=== PATIENT | female | born 1985 | race Caucasian/White ===

== ENCOUNTER 2017-10-22 19:59 | Inpatient (IN) | payer SELFPAY ==
[~2017-10-22] VITALS: Ht 162.6 cm; Wt 57.6 kg
[2017-10-22] MEDS ORDERED: IV NORMAL SALINE 1000ML BAG 1,000 ML IV ONE ×2 (20:15→21:30)
[2017-10-22 20:17] LABS: BASO % 1 % (0-3); EOS % 1 % (0-3); HEMATOCRIT 40.8 % (36.0-47.0); HEMOGLOBIN 13.4 g/dL (12.0-15.5); LYMPH # 1.8 x10^3/uL (1.0-4.8); LYMPH % 26 % (24-48); MEAN CORPUSCULAR HEMOGLOBIN 30 pg (25-35); MEAN CORPUSCULAR HGB CONC 33 g/dL (31-37); MEAN CORPUSCULAR VOLUME 91 fL (79-100); MONO % 10 % (0-9); NEUT % 63 % (31-73); PLATELET COUNT 303 x10^3/uL (140-400); RED BLOOD COUNT 4.47 x10^6/uL (3.50-5.40); RED CELL DISTRIBUTION WIDTH 12.9 % (11.5-14.5)
--- NOTE | 2017-10-22 20:21 | EKG ---
[facility] [address] [place] [address] Test Date: 2017-10-22 Test Time: 19:59:19 Pat Name: DARRYL KELLY Department: Room: Gender: F Dicer Operator: : 1985 Requested By: PASTORA ROMERO Order Number: [id number] Reading MD: Mitchell Garcia Measurements Intervals [place] Rate: 115 P: 72 NV: 136 QRS: 71 QRSD: 76 T: 55 QT: 314 QTc: 436 Interpretive Statements SINUS TACHYCARDIA OTHERWISE NORMAL ECG Electronically Signed On 11-04-2017 13:58:53 APARTMENT COMMUNITY ASSISTANT MANAGER by Mitchell Garcia
[2017-10-22 20:23] LABS: POTASSIUM ISTAT 3.6 mmol/L (3.5-5.0)
[2017-10-22 20:27] LABS: BARBITURATES NEG (NEG); BENZODIAZEPINES POS (NEG); CANNABINOIDS POS (NEG); COCAINE POS (NEG); METHADONE NEG (NEG); OPIATES POS (NEG); PHENCYCLIDINE NEG (NEG)
[2017-10-22 20:31] LABS: CALCIUM 8.8 mg/dL (8.5-10.1); CREATININE 1.4 mg/dL (0.6-1.0); GFR 43.3; POTASSIUM 3.6 mmol/L (3.5-5.1)
[2017-10-22 20:37] LABS: ALBUMIN 3.8 g/dL (3.4-5.0); ALBUMIN/GLOBULIN RATIO 1.3 (1.0-1.7); TOTAL BILIRUBIN 0.5 mg/dL (0.2-1.0); TOTAL PROTEIN 6.8 g/dL (6.4-8.2)
[2017-10-22] MEDS ORDERED: NALOXONE 2 MG/2 ML DISP.SYRIN. ONE (21:41)
[2017-10-22] MEDS ORDERED: NALOXONE 0.4 MG/ML VIAL. IV ONE ×2 (22:15→23:30)
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
[2017-10-23] VITALS (13 sets, daily range): BP systolic 100–117; BP diastolic 62–80
[2017-10-23] MEDS ORDERED: ONDANSETRON PF 4 MG/2 ML VIAL. IV PRN (01:15)
[2017-10-23] MEDS ORDERED: NALOXONE 2 MG in IV DEXTROSE 5% 500 ML IV ONE (01:30)
[2017-10-23] MEDS: NALOXONE 2 MG in IV DEXTROSE 5% 500 ML IV PRN ×3 (04:46→11:25)
--- NOTE | 2017-10-23 07:48 | RAD ---
EXAM: Chest one view. HISTORY: Syncope, unresponsive. COMPARISON: None. FINDINGS: A frontal view of the chest is obtained. There are no confluent infiltrates. There is no pneumothorax or pleural effusion. The heart is not enlarged. IMPRESSION: 1. No confluent infiltrates.
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
== END 2017-10-23 13:40 | DRG 918 ==
LOC: ER 19:59 → 1 WEST ICU 10-23 01:06
PROVIDERS: ADMIT Internal Medicine; ATTEND Internal Medicine
DX: T40.1X1A Poisoning by heroin, accidental (unintentional), initial encounter (principal); F11.10 Opioid abuse, uncomplicated; F17.200 Nicotine dependence, unspecified, uncomplicated; Y92.89 Other specified places as the place of occurrence of the external cause; Z83.3 Family history of diabetes mellitus; Z90.49 Acquired absence of other specified parts of digestive tract; Z65.3 Problems related to other legal circumstances
CPT/HCPCS: 36415; 51702; 71010; 80047; 80053; 80307; 80329; 81025; 84484; 85025; 87641; 93005; 96361; 96365; 96375; 96376; 99292; J2310; J7030; 99291-25; G0479